=== PATIENT | male | born 1955 | race Caucasian/White ===

== ENCOUNTER 2018-01-23 20:34 | Emergency (ER) | payer OTHER, SELFPAY ==
[2018-01-23] MEDS ORDERED: Proparacaine 0.5% Opth 15 ML BOT ONE (20:47)
[2018-01-23] MEDS ORDERED: Fluorescein Opthalmic Strip ONE (20:47)
[2018-01-23] MEDS ORDERED: Adacel (T-DAP) 0.5 ML VIAL ONE (21:09)
== END 2018-01-23 21:30 | disposition home or self-care (01) ==
LOC: SCSER 20:34
DX: S01.81XA Laceration without foreign body of other part of head, initial encounter (principal); S05.01XA Injury of conjunctiva and corneal abrasion without foreign body, right eye, initial encounter; W22.8XXA Striking against or struck by other objects, initial encounter; Y99.0 Civilian activity done for income or pay
CPT/HCPCS: 12011; 90471; 90715